=== PATIENT | male | born 1965 | race Caucasian/White ===

== ENCOUNTER → 2017-11-30 | Outpatient (CLI) | payer BC, OTHER | LOC: GMAJ 10:18 | PROVIDERS: ATTEND Family Medicine | DX: Z00.00 Encounter for general adult medical examination without abnormal findings (principal) ==

== ENCOUNTER 2018-01-01 05:33 | Day surgery (SDC) | payer BC ==
[2018-01-01] MEDS ORDERED: LACTATED RINGERS 1,000 ML ONE (06:57)
[2018-01-01 08:18] VITALS: O2SAT 97
--- NOTE | 2018-01-01 08:48 | OP ---
DATE OF PROCEDURE: 01/01/18 PREOPERATIVE DIAGNOSIS: 1. Colon cancer screen. POSTOPERATIVE DIAGNOSIS: 1. Colon cancer screen. 2. Rectal polyp. 3. Melanosis coli. PROCEDURE: 1. Colonoscopy with polypectomy. SURGEON: Jeremiah Edwards MD. ANESTHESIA: MAC by Jeff Youssef CRNA. ESTIMATED BLOOD LOSS: Less than 2 mL. COMPLICATIONS: None apparent. TECHNIQUE: After informed consent was obtained from the patient, the patient was taken to the Endoscopy Suite and put in the left lateral decubitus position. After adequate IV sedation was obtained, a digital rectal exam was performed which revealed normal sphincter tone, no intraluminal masses, and a smooth, anodular, normal sized prostate. The colonoscope was then passed with good visualization all the way through the colon. The bowel prep was good. The cecum was identified by the presence of ileocecal valve and appendiceal orifice. The scope was then withdrawn slowly over the next 8 minutes and a good look at the entire colonic mucosa was obtained. A single small hyperplastic appearing polyp was found low in the rectum. This was removed with the cold biopsy forceps and there was good hemostasis following the polypectomy. The scope was removed. The patient tolerated the procedure well. The patient was transported to the outpatient area in good condition. It is recommended that he have another scope within the next 5 years, maybe sooner depending on the pathology report from the polyp. We will contact the patient by phone with the results of the pathology. #[id number] [facility] SYSTEM[facility]elia
[2018-01-01 09:03] VITALS: BP 120/73; TEMP 98.5
[2018-01-01] MEDS ORDERED: LIDOCAINE 1% 10 ML VIAL INJ ONE (10:00)
[2018-01-01] MEDS ORDERED: PROPOFOL 200 MG/20 ML VIAL IV ONE (10:00)
== END 2018-01-01 08:50 | disposition home or self-care (01) ==
LOC: AMB 05:33
PROVIDERS: ATTEND Family Medicine
DX: Z12.11 Encounter for screening for malignant neoplasm of colon (principal); D12.8 Benign neoplasm of rectum; K63.89 Other specified diseases of intestine; K21.9 Gastro-esophageal reflux disease without esophagitis; F32.9 Major depressive disorder, single episode, unspecified; E78.5 Hyperlipidemia, unspecified; E78.00 Pure hypercholesterolemia, unspecified; K76.0 Fatty (change of) liver, not elsewhere classified; R03.0 Elevated blood-pressure reading, without diagnosis of hypertension; Z79.899 Other long term (current) drug therapy

== ENCOUNTER → 2019-03-20 | Outpatient (CLI) | payer BC | LOC: GMAHI 16:58 | PROVIDERS: ATTEND Nurse Practitioner Family | DX: E34.9 Endocrine disorder, unspecified (principal) ==

== ENCOUNTER → 2019-05-01 | Outpatient (CLI) | payer BC | LOC: GMAHI 11:28 | PROVIDERS: ATTEND Nurse Practitioner Family | DX: D50.8 Other iron deficiency anemias (principal) ==

== ENCOUNTER → 2019-09-10 | Outpatient (CLI) | payer BC | LOC: GMAHI 10:25 | PROVIDERS: ATTEND Nurse Practitioner Family | DX: E34.9 Endocrine disorder, unspecified (principal) ==

== ENCOUNTER → 2020-03-03 | Outpatient (CLI) | payer BC | LOC: GMAJ 16:37 | PROVIDERS: ATTEND Family Medicine | DX: E61.1 Iron deficiency (principal); E29.1 Testicular hypofunction; R42 Dizziness and giddiness ==